=== PATIENT | female | born 1955 | race Caucasian/White ===

== ENCOUNTER 2020-09-29 11:30 | Emergency (ER) | payer MEDICARE, OTHER ==
[~2020-09-29] VITALS: Ht 170.2 cm; Wt 72.6 kg
[~2020-09-29 11:30] MED LIST: AMLODIPINE BESY10 MG PO; ASPIR 8181 MG PO; CARDURA 2MG TAB2 MG PO; CARVEDILOL3.125 MG PO; CATAPRES 0.1MG0.1 MG PO; CHOLESTEROL RE1 EACH PO; CLARITIN10 MG PO; CLONIDINE1 EAC1 TD; CLOPIDOGREL75 MG PO; COREG 3.125M3.125 MG PO; COZAAR 50MG TAB50 MG PO; COZAAR50 MG PO; DIABETA 5 MG TAB5 MG PO; FISH OIL 1,4001 EACH PO; FLUNISOLIDE25 ML; GLUCOTROL 10 MG10 MG PO; HYDRALAZINE HC100 MG PO; HYDRALAZINE HCL50 MG PO; K-DUR TAB 20 M20 MEQ PO; LASIX40 MG PO; LASIX80 MG PO; LEVEMIR FL100 UNIT/1 SQ; LISINOPRIL40 MG PO; METOPROLOL TART25 MG PO; MINIPRESS2 MG PO; NEURONTIN 100100 MG PO; NORVASC10 MG PO; PAXIL20 MG PO; PLAVIX 75 MG TA75 MG PO; PROCARDIA XL 6060 MG PO; SINGULAIR10 MG PO; TYLENOL PM EX-1 EACH PO; VITAMIN D31000 UNIT PO; [UNRECOGNIZED DRUG - CODE] SC; [UNRECOGNIZED DRUG - OTHER] SQ
[2020-09-29 12:50] LABS: RED BLOOD COUNT 4.28 M/UL (4.00-5.10); WHITE BLOOD COUNT 16.1 K/UL (4.5-11.0)
[2021-02-09] MEDS ORDERED: GLUCOTROL 10 MG10 MG PO (12:18)
[2021-02-09] MEDS ORDERED: LIDOCAINE1 EAC1 TP (18:48)
[2021-02-09] MEDS ORDERED: LEVEMIR FL100 UNIT/1 SQ (18:50)
== END 2020-09-29 19:06 | disposition home or self-care (01) ==
LOC: ER1 11:30 → CDU 15:04 → ER1 15:04
PROVIDERS: Internal Medicine
DX: A41.9 Sepsis, unspecified organism (principal); K65.2 Spontaneous bacterial peritonitis; E87.2 Acidosis; E87.6 Hypokalemia; I25.10 Atherosclerotic heart disease of native coronary artery without angina pectoris; E03.9 Hypothyroidism, unspecified; I12.0 Hypertensive chronic kidney disease with stage 5 chronic kidney disease or end stage renal disease; E78.5 Hyperlipidemia, unspecified; E11.22 Type 2 diabetes mellitus with diabetic chronic kidney disease; I48.91 Unspecified atrial fibrillation; N18.6 End stage renal disease; Z99.2 Dependence on renal dialysis; Z88.0 Allergy status to penicillin; Z88.6 Allergy status to analgesic agent; Z90.49 Acquired absence of other specified parts of digestive tract; Z79.01 Long term (current) use of anticoagulants; Z20.822 Contact with and (suspected) exposure to COVID-19
CPT/HCPCS: 36415; 80053; 83605; 83735; 84484; 85025; 85610; 85730; 87040; 93005; 96365; 96368; 99285; J0696; J1644; J3480; U0002

== ENCOUNTER 2020-10-11 12:50 | Emergency (ER) | payer MEDICARE, OTHER ==
[2020-10-11 13:29] LABS: HEMOGLOBIN 12.6 gm/dl (12.3-15.3); RED BLOOD COUNT 4.43 M/UL (4.00-5.10); WHITE BLOOD COUNT 13.3 K/UL (4.5-11.0)
[2020-10-11 15:28] LABS: BODY FLUID SOURCE PERITONEAL; RBC (AUTOMATED) 0 (0-100000); WBC (AUTOMATED) 3 (0-500)
[2020-10-11 15:35] LABS: AMYLASE, BODY FLUID < 2 U/L; LDH, BODY FLUID 8 U/L
[2020-10-11] MEDS ORDERED: ADULT GLYCERIN1 EACH PR (20:58)
[2020-10-11] MEDS ORDERED: MIRALAX 119 GR119 GM GT (20:58)
[2021-02-09] MEDS ORDERED: GLUCOTROL 10 MG10 MG PO (12:18)
[2021-02-09] MEDS ORDERED: LIDOCAINE1 EAC1 TP (18:48)
[2021-02-09] MEDS ORDERED: LEVEMIR FL100 UNIT/1 SQ (18:50)
== END 2020-10-11 21:36 | disposition home or self-care (01) ==
LOC: ER1 12:50
PROVIDERS: Physician Assistant Medical
DX: K59.00 Constipation, unspecified (principal); I12.9 Hypertensive chronic kidney disease with stage 1 through stage 4 chronic kidney disease, or unspecified chronic kidney disease; N18.9 Chronic kidney disease, unspecified; E11.22 Type 2 diabetes mellitus with diabetic chronic kidney disease; Z90.49 Acquired absence of other specified parts of digestive tract; Z79.899 Other long term (current) drug therapy; Z88.8 Allergy status to other drugs, medicaments and biological substances
CPT/HCPCS: 51701; 80053; 81001; 82150; 83605; 83615; 83690; 85025; 87070; 87205; 89051; 96374; 96375; 99284; J2270; J2405; J7030

== ENCOUNTER 2020-10-19 14:01 | Emergency (ER) | payer MEDICARE, OTHER ==
[~2020-10-19 14:01] MED LIST changes: +ADULT GLYCERIN1 EACH PR; +MIRALAX 119 GR119 GM GT
[2020-10-19 14:56] LABS: HEMOGLOBIN 12.7 gm/dl (12.3-15.3); RED BLOOD COUNT 4.42 M/UL (4.00-5.10); WHITE BLOOD COUNT 11.6 K/UL (4.5-11.0)
[2020-10-19 16:49] LABS: BUN/CREATININE RATIO 5 (0-10)
[2021-02-09] MEDS ORDERED: GLUCOTROL 10 MG10 MG PO (12:18)
[2021-02-09] MEDS ORDERED: LIDOCAINE1 EAC1 TP (18:48)
[2021-02-09] MEDS ORDERED: LEVEMIR FL100 UNIT/1 SQ (18:50)
== END 2020-10-19 20:45 | disposition home or self-care (01) ==
LOC: ER1 14:01
PROVIDERS: Emergency Medicine
DX: E11.649 Type 2 diabetes mellitus with hypoglycemia without coma (principal); I99.8 Other disorder of circulatory system
CPT/HCPCS: 51701; 70450; 71045; 80053; 81001; 82550; 82553; 82962; 83605; 83874; 83880; 84484; 85025; 93005; 99285

== ENCOUNTER 2020-12-11 13:07 | Inpatient (IN) | payer MEDICARE, OTHER ==
[~2020-12-11] VITALS: Ht 170.2 cm; Wt 69.5 kg
[2020-12-11 14:41] LABS: HEMOGLOBIN 9.9 gm/dl (12.3-15.3); RED BLOOD COUNT 3.42 M/UL (4.00-5.10); WHITE BLOOD COUNT 8.1 K/UL (4.5-11.0)
[2020-12-11 19:08] LABS: BODY FLUID SOURCE PERITONEAL; RBC (AUTOMATED) 100 (0-100000); WBC (AUTOMATED) 28 (0-500)
[2020-12-11 19:09] LABS: MONONUCLEAR CELLS 89.3 (75-100); POLYMORPHONUCLEAR % 10.7 (0-25)
[2020-12-11 19:11] LABS: TOTAL PROTEIN, BODY FLUID 0.2 gm/dL
[2020-12-12 04:04] LABS: HEMOGLOBIN 9.6 gm/dl (12.3-15.3); RED BLOOD COUNT 3.3 M/UL (4.00-5.10); WHITE BLOOD COUNT 6.4 K/UL (4.5-11.0)
[2020-12-12] MEDS ORDERED: ISORDIL TAB 3030 MG PO (11:10)
[2020-12-12] MEDS ORDERED: ZAROXOLYN/DIULO5 MG PO (11:11)
[2020-12-12] MEDS ORDERED: METHOCARBAMOL500 MG PO (11:11)
[2020-12-12] MEDS ORDERED: METOPROLOL SUCC25 MG PO (11:12)
[2020-12-12] MEDS ORDERED: SPIRONOLACTONE25 MG PO (11:26)
[2020-12-12] MEDS ORDERED: ZANAFLEX 4 MG TA4 MG PO (11:27)
[2020-12-12] MEDS ORDERED: XIFAXAN 550 MG550 MG PO (11:28)
[2020-12-12] MEDS ORDERED: ATORVASTATIN CA80 MG PO (11:29)
[2020-12-12] MEDS ORDERED: CETIRIZINE HCL10 MG PO (11:29)
[2020-12-12] MEDS ORDERED: CREON DR 36,001 EACH PO (11:30)
[2020-12-12] MEDS ORDERED: ELIQUIS2.5 MG PO (11:31)
[2020-12-12] MEDS ORDERED: LIDOCAINE PAIN1 EACH TP (13:11)
[2020-12-13 04:52] LABS: HEMOGLOBIN 9.1 gm/dl (12.3-15.3); RED BLOOD COUNT 3.2 M/UL (4.00-5.10); WHITE BLOOD COUNT 6.1 K/UL (4.5-11.0)
[2020-12-14 06:56] LABS: RED BLOOD COUNT 3.44 M/UL (4.00-5.10)
[2020-12-14 07:23] LABS: WHITE BLOOD COUNT 7.9 K/UL (4.5-11.0)
[2020-12-15 09:14] LABS: HBSAG SCREEN Negative (Negative); HEP A AB, IGM Negative (Negative); HEP B CORE AB, IGM Negative (Negative); HEP C VIRUS AB <0.1 (0.0-0.9)
[2020-12-15 11:49] LABS: WHITE BLOOD COUNT 7.9 K/UL (4.5-11.0)
[2020-12-15 12:54] LABS: HEMOGLOBIN 7.7 gm/dl (12.3-15.3); RED BLOOD COUNT 2.62 M/UL (4.00-5.10)
[2020-12-16 03:33] LABS: RED BLOOD COUNT 2.41 M/UL (4.00-5.10); WHITE BLOOD COUNT 7.2 K/UL (4.5-11.0)
--- NOTE | 2020-12-16 11:38 | NUR ---
DR SILVA ON THE PHONE, SEEN PATIENT AND WILL ORDER NEW MEDICINE
[2020-12-16 17:29] LABS: HEMOGLOBIN 9.1 gm/dl (12.3-15.3)
[2020-12-17 03:18] LABS: HEMOGLOBIN 8.2 gm/dl (12.3-15.3); WHITE BLOOD COUNT 7.5 K/UL (4.5-11.0)
[2020-12-17 03:20] LABS: RED BLOOD COUNT 2.77 M/UL (4.00-5.10)
[2020-12-18 03:43] LABS: HEMOGLOBIN 8.2 gm/dl (12.3-15.3); RED BLOOD COUNT 2.76 M/UL (4.00-5.10); WHITE BLOOD COUNT 7.6 K/UL (4.5-11.0)
--- NOTE | 2020-12-21 02:24 | NUR ---
12/20/201999 PT HAS LEFT UPPER ARM FISTUAL NO BRUIT OR TRILL NOTED. PT STATES IT DOES NOT WORK ANYMORE.
[2020-12-21 04:19] LABS: RED BLOOD COUNT 2.68 M/UL (4.00-5.10); WHITE BLOOD COUNT 8.2 K/UL (4.5-11.0)
[2020-12-21] MEDS ORDERED: COZAAR 50MG TAB50 MG PO (11:42)
[2020-12-21] MEDS ORDERED: CLOPIDOGREL75 MG PO (11:42)
[2020-12-21] MEDS ORDERED: PHENERGAN 12.12.5 M1 PO (11:42)
--- NOTE | 2020-12-21 12:21 | NUR ---
patient going to have her dialysis today per dr. burt. notified dr. leung and case hardener rosalba
[2020-12-22 04:23] LABS: RED BLOOD COUNT 2.68 M/UL (4.00-5.10); WHITE BLOOD COUNT 8.5 K/UL (4.5-11.0)
--- NOTE | 2020-12-22 14:09 | NUR ---
PATIENT ARRIVED FROM DIALYSIS TODAY
[2021-02-09] MEDS ORDERED: GLUCOTROL 10 MG10 MG PO (12:18)
[2021-02-09] MEDS ORDERED: LIDOCAINE1 EAC1 TP (18:48)
[2021-02-09] MEDS ORDERED: LEVEMIR FL100 UNIT/1 SQ (18:50)
== END 2020-12-22 14:21 | DRG 73 ==
LOC: ER1 13:07 → M/S 16:56 → CDU 16:56 → M/S 20:14
PROVIDERS: Hospitalist; Internal Medicine Infectious Disease; Internal Medicine Nephrology; Physician Assistant; ADMIT Internal Medicine
PROC: 3E1M39Z Irrigation of Peritoneal Cavity using Dialysate, Percutaneous Approach (ICD-10-PCS; 2020-12-11)
PROC: 05HM33Z Insertion of Infusion Device into Right Internal Jugular Vein, Percutaneous Approach (ICD-10-PCS; 2020-12-14)
PROC: B5131ZA Fluoroscopy of Right Jugular Veins using Low Osmolar Contrast, Guidance (ICD-10-PCS; 2020-12-14)
PROC: 30233N1 Transfusion of Nonautologous Red Blood Cells into Peripheral Vein, Percutaneous Approach (ICD-10-PCS; principal; 2020-12-16)
PROC: 5A1D70Z Performance of Urinary Filtration, Intermittent, Less than 6 Hours Per Day (ICD-10-PCS; 2020-12-17)
PROC: 0JPT0XZ Removal of Tunneled Vascular Access Device from Trunk Subcutaneous Tissue and Fascia, Open Approach (ICD-10-PCS; 2020-12-18)
PROC: 0JH63XZ Insertion of Tunneled Vascular Access Device into Chest Subcutaneous Tissue and Fascia, Percutaneous Approach (ICD-10-PCS; 2020-12-18)
PROC: 02HV33Z Insertion of Infusion Device into Superior Vena Cava, Percutaneous Approach (ICD-10-PCS; 2020-12-18)
PROC: B548ZZA Ultrasonography of Superior Vena Cava, Guidance (ICD-10-PCS; 2020-12-18)
DX: E11.43 Type 2 diabetes mellitus with diabetic autonomic (poly)neuropathy (principal); N18.6 End stage renal disease; E87.1 Hypo-osmolality and hyponatremia; T82.49XA Other complication of vascular dialysis catheter, initial encounter; I13.2 Hypertensive heart and chronic kidney disease with heart failure and with stage 5 chronic kidney disease, or end stage renal disease; I48.20 Chronic atrial fibrillation, unspecified; K31.84 Gastroparesis; Z20.822 Contact with and (suspected) exposure to COVID-19; E11.22 Type 2 diabetes mellitus with diabetic chronic kidney disease; E87.6 Hypokalemia; E83.42 Hypomagnesemia; I48.0 Paroxysmal atrial fibrillation; K44.9 Diaphragmatic hernia without obstruction or gangrene; K21.00 Gastro-esophageal reflux disease with esophagitis, without bleeding; K29.60 Other gastritis without bleeding; E11.319 Type 2 diabetes mellitus with unspecified diabetic retinopathy without macular edema; I50.9 Heart failure, unspecified; I49.5 Sick sinus syndrome; K31.7 Polyp of stomach and duodenum; Y83.8 Other surgical procedures as the cause of abnormal reaction of the patient, or of later complication, without mention of misadventure at the time of the procedure; D63.1 Anemia in chronic kidney disease; E03.9 Hypothyroidism, unspecified; R53.81 Other malaise; H54.8 Legal blindness, as defined in USA; E11.21 Type 2 diabetes mellitus with diabetic nephropathy; R63.4 Abnormal weight loss; Z79.4 Long term (current) use of insulin; Z79.01 Long term (current) use of anticoagulants; Z86.73 Personal history of transient ischemic attack (TIA), and cerebral infarction without residual deficits; Z99.2 Dependence on renal dialysis; Z90.49 Acquired absence of other specified parts of digestive tract; Z88.6 Allergy status to analgesic agent; Z88.0 Allergy status to penicillin; Z98.51 Tubal ligation status
CPT/HCPCS: 36415; 36430; 71045; 77001; 78264; 80048; 80053; 80074; 82150; 82550; 82553; 82728; 82945; 82962; 83540; 83550; 83605; 83615; 83735; 83874; 83880; 83986; 84132; 84157; 84484; 85014; 85018; 85025; 86850; 86900; 86901; 86920; 87040; 87070; 87205; 89051; 90935; 90937; 90945; 90947; 93005; 97110; 97110-GP-CQ; 97161; 97167; 97530; 97530-GP-CQ; 99285; A9541; C1750; C1752; C1769; C1788; J0690; J1642; J2001; J2250; J2270; J2370; J2550; J2704; J3475; J7030; J7040; J7050; J7120; P9016; U0002

== ENCOUNTER 2021-01-13 22:40 | Inpatient (IN) | payer MEDICARE, OTHER ==
[~2021-01-13] VITALS: Ht 170.2 cm; Wt 71.8 kg
[~2021-01-13 22:40] MED LIST changes: +ATORVASTATIN CA80 MG PO; +CETIRIZINE HCL10 MG PO; +CREON DR 36,001 EACH PO; +ELIQUIS2.5 MG PO; +ISORDIL TAB 3030 MG PO; +LIDOCAINE PAIN1 EACH TP; +METHOCARBAMOL500 MG PO; +METOPROLOL SUCC25 MG PO; +PHENERGAN 12.12.5 M1 PO; +SPIRONOLACTONE25 MG PO; +XIFAXAN 550 MG550 MG PO; +ZANAFLEX 4 MG TA4 MG PO; +ZAROXOLYN/DIULO5 MG PO
[2021-01-13 23:40] LABS: HEMOGLOBIN 7.9 gm/dl (12.3-15.3); RED BLOOD COUNT 2.69 M/UL (4.00-5.10); WHITE BLOOD COUNT 9.2 K/UL (4.5-11.0)
[2021-01-14] MEDS ORDERED: COZAAR100 MG PO (12:08)
[2021-01-14] MEDS ORDERED: METHOCARBAMOL500 MG PO (12:26)
[2021-01-14] MEDS ORDERED: BENTYL 20MG TAB20 MG PO (12:28)
[2021-01-14] MEDS ORDERED: SILDENAFIL20 MG PO (12:54)
[2021-01-14] MEDS ORDERED: NORVASC10 MG PO (12:57)
[2021-01-14] MEDS ORDERED: HYDRALAZINE HC100 MG PO (12:58)
[2021-01-14] MEDS ORDERED: KLOR-CON M2020 MEQ PO (13:00)
[2021-01-14] MEDS ORDERED: ZYRTEC10 M3 PO (13:01)
[2021-01-14 15:20] LABS: HEMOGLOBIN 8.5 gm/dl (12.3-15.3)
[2021-01-15 06:52] LABS: HEMOGLOBIN 7.8 gm/dl (12.3-15.3); RED BLOOD COUNT 2.67 M/UL (4.00-5.10); WHITE BLOOD COUNT 7.7 K/UL (4.5-11.0)
[2021-01-15 09:17] LABS: HBSAG SCREEN Negative (Negative); HEP A AB, IGM Negative (Negative); HEP B CORE AB, IGM Negative (Negative); HEP C VIRUS AB <0.1 (0.0-0.9)
[2021-01-15 10:34] LABS: BODY FLUID SOURCE PERITONEAL; RBC (AUTOMATED) 0 10^6; WBC (AUTOMATED) 2 10^3
[2021-01-16 04:51] LABS: HEMOGLOBIN 8.2 gm/dl (12.3-15.3); RED BLOOD COUNT 2.76 M/UL (4.00-5.10)
[2021-01-16 04:53] LABS: WHITE BLOOD COUNT 10.3 K/UL (4.5-11.0)
[2021-01-17 03:35] LABS: HEMOGLOBIN 7.9 gm/dl (12.3-15.3); RED BLOOD COUNT 2.66 M/UL (4.00-5.10)
[2021-01-17 03:41] LABS: WHITE BLOOD COUNT 7.6 K/UL (4.5-11.0)
--- NOTE | 2021-01-17 10:33 | NUR ---
[address] randolph regarding consult
[2021-01-18 08:40] LABS: HEMOGLOBIN 8.8 gm/dl (12.3-15.3); WHITE BLOOD COUNT 8.4 K/UL (4.5-11.0)
[2021-01-18 08:52] LABS: RED BLOOD COUNT 2.97 M/UL (4.00-5.10)
[2021-01-18] MEDS ORDERED: CEFUROXIME250 MG PO (13:02)
[2021-01-18 15:10] LABS: ALKALINE PHOSPHATASE, S 118 IU/L (48-121); BONE FRACTION: 27 % (14-68); INTESTINAL FRAC.: 2 % (0-18); LIVER FRACTION: 70 % (18-85)
[2021-02-09] MEDS ORDERED: GLUCOTROL 10 MG10 MG PO (12:18)
[2021-02-09] MEDS ORDERED: LIDOCAINE1 EAC1 TP (18:48)
[2021-02-09] MEDS ORDERED: LEVEMIR FL100 UNIT/1 SQ (18:50)
== END 2021-01-18 18:10 | disposition home health service (06) | DRG 871 ==
LOC: ER1 22:40 → M/S 01-14 03:10 → CDU 01-14 03:10 → CCU 01-14 03:10 → M/S 01-16 11:10
PROVIDERS: Emergency Medicine; Internal Medicine Nephrology; Physician Assistant; ADMIT Internal Medicine
PROC: 5A1D70Z Performance of Urinary Filtration, Intermittent, Less than 6 Hours Per Day (ICD-10-PCS; principal; 2021-01-14)
PROC: 02HV33Z Insertion of Infusion Device into Superior Vena Cava, Percutaneous Approach (ICD-10-PCS; 2021-01-14)
DX: A41.89 Other specified sepsis (principal); R65.21 Severe sepsis with septic shock; N18.6 End stage renal disease; K65.9 Peritonitis, unspecified; E43 Unspecified severe protein-calorie malnutrition; I48.20 Chronic atrial fibrillation, unspecified; E87.1 Hypo-osmolality and hyponatremia; J90 Pleural effusion, not elsewhere classified; I13.0 Hypertensive heart and chronic kidney disease with heart failure and stage 1 through stage 4 chronic kidney disease, or unspecified chronic kidney disease; Z68.1 Body mass index [BMI] 19.9 or less, adult; N30.80 Other cystitis without hematuria; B96.1 Klebsiella pneumoniae [K. pneumoniae] as the cause of diseases classified elsewhere; E87.6 Hypokalemia; E83.42 Hypomagnesemia; E03.9 Hypothyroidism, unspecified; K74.60 Unspecified cirrhosis of liver; I95.9 Hypotension, unspecified; M54.9 Dorsalgia, unspecified; R53.1 Weakness; E11.40 Type 2 diabetes mellitus with diabetic neuropathy, unspecified; I49.5 Sick sinus syndrome; E78.5 Hyperlipidemia, unspecified; J45.909 Unspecified asthma, uncomplicated; I50.9 Heart failure, unspecified; H54.7 Unspecified visual loss; E11.319 Type 2 diabetes mellitus with unspecified diabetic retinopathy without macular edema; D53.9 Nutritional anemia, unspecified; K21.9 Gastro-esophageal reflux disease without esophagitis; L89.322 Pressure ulcer of left buttock, stage 2; E11.22 Type 2 diabetes mellitus with diabetic chronic kidney disease; Z98.42 Cataract extraction status, left eye; Z88.0 Allergy status to penicillin; Z88.8 Allergy status to other drugs, medicaments and biological substances; Z79.4 Long term (current) use of insulin; Z86.73 Personal history of transient ischemic attack (TIA), and cerebral infarction without residual deficits; Z82.49 Family history of ischemic heart disease and other diseases of the circulatory system; Z79.01 Long term (current) use of anticoagulants; Z98.41 Cataract extraction status, right eye; Z90.49 Acquired absence of other specified parts of digestive tract; Z84.89 Family history of other specified conditions
CPT/HCPCS: 36415; 51701; 71045; 72131; 80048; 80053; 80074; 80202; 81001; 82728; 82962; 83540; 83550; 83605; 83690; 83735; 84075; 84080; 84132; 85014; 85018; 85025; 85027; 85652; 86140; 87040; 87070; 87077; 87086; 87186; 87205; 89051; 90945; 90947; 96374; 96375; 97162; 97166; 99285; A6212; J0696; J2185; J2270; J2765; J3370; J3475; J7030; J7050; J7070; Q4081; U0002

== ENCOUNTER 2021-02-07 19:09 | Inpatient (IN) | payer MEDICARE, OTHER ==
[~2021-02-07] VITALS: Ht 170.2 cm; Wt 70.8 kg
[~2021-02-07 19:09] MED LIST changes: -ATORVASTATIN CA80 MG PO; +BENTYL 20MG TAB20 MG PO; +CEFUROXIME250 MG PO; +COZAAR100 MG PO; -CREON DR 36,001 EACH PO; +KLOR-CON M2020 MEQ PO; -METOPROLOL SUCC25 MG PO; +SILDENAFIL20 MG PO; -ZANAFLEX 4 MG TA4 MG PO; +ZYRTEC10 M3 PO
[2021-02-07 20:07] LABS: HEMOGLOBIN 11.2 gm/dl (12.3-15.3); RED BLOOD COUNT 3.73 M/UL (4.00-5.10); WHITE BLOOD COUNT 16.5 K/UL (4.5-11.0)
[2021-02-08 02:54] LABS: HEMOGLOBIN 10.4 gm/dl (12.3-15.3); RED BLOOD COUNT 3.49 M/UL (4.00-5.10)
[2021-02-08] MEDS ORDERED: ALDACTONE25 MG PO (07:29)
[2021-02-08] MEDS ORDERED: ZAROXOLYN/DIULO5 MG PO (07:31)
[2021-02-08] MEDS ORDERED: FUROSEMIDE80 MG PO (07:31)
[2021-02-08] MEDS ORDERED: SANTYL OINT 3030 GM TP (07:32)
[2021-02-08] MEDS ORDERED: ISORDIL TAB 3030 MG PO (07:35)
[2021-02-09 03:13] LABS: HEMOGLOBIN 8.9 gm/dl (12.3-15.3)
[2021-02-09 03:17] LABS: RED BLOOD COUNT 2.99 M/UL (4.00-5.10); WHITE BLOOD COUNT 11.9 K/UL (4.5-11.0)
[2021-02-09] MEDS ORDERED: LEVOTHYROXINE50 MCG PO (11:10)
[2021-02-09] MEDS ORDERED: PROTONIX40 MG PO (12:00)
[2021-02-09] MEDS ORDERED: HUMALOG100 UNIT/3 SC (18:51)
[2021-02-10 02:24] LABS: HEMOGLOBIN 8.8 gm/dl (12.3-15.3); RED BLOOD COUNT 3.09 M/UL (4.00-5.10); WHITE BLOOD COUNT 13.2 K/UL (4.5-11.0)
[2021-02-10 10:14] LABS: HBSAG SCREEN Negative (Negative); HEP A AB, IGM Negative (Negative); HEP B CORE AB, IGM Negative (Negative); HEP C VIRUS AB <0.1 (0.0-0.9)
[2021-02-11 02:40] LABS: HEMOGLOBIN 9.6 gm/dl (12.3-15.3); RED BLOOD COUNT 3.22 M/UL (4.00-5.10); WHITE BLOOD COUNT 14.2 K/UL (4.5-11.0)
[2021-02-12 05:20] LABS: HEMOGLOBIN 9.5 gm/dl (12.3-15.3); RED BLOOD COUNT 3.19 M/UL (4.00-5.10); WHITE BLOOD COUNT 11.4 K/UL (4.5-11.0)
[2021-02-12] MEDS ORDERED: DOXYCYCLINE HY100 MG PO (13:37)
[2021-02-12] MEDS ORDERED: CATAPRES 0.1MG0.1 MG PO (13:37)
[2021-02-12] MEDS ORDERED: OMNICEF 300 MG300 MG PO (13:37)
[2021-02-12] MEDS ORDERED: CLONIDINE1 EACH TOP (13:37)
[2021-02-12] MEDS ORDERED: METOCLOPRAMIDE10 MG PO (13:57)
== END 2021-02-12 16:09 | disposition home health service (06) | DRG 871 ==
LOC: ER1 19:09 → PROG CARE 22:42 → CDU 22:42 → PROG CARE 02-08 00:30
PROVIDERS: Family Medicine; Internal Medicine; Internal Medicine Nephrology; ADMIT Internal Medicine
PROC: 3E1M39Z Irrigation of Peritoneal Cavity using Dialysate, Percutaneous Approach (ICD-10-PCS; principal; 2021-02-08)
DX: A41.59 Other Gram-negative sepsis (principal); G93.41 Metabolic encephalopathy; N18.6 End stage renal disease; N39.0 Urinary tract infection, site not specified; Z20.822 Contact with and (suspected) exposure to COVID-19; I12.0 Hypertensive chronic kidney disease with stage 5 chronic kidney disease or end stage renal disease; L97.429 Non-pressure chronic ulcer of left heel and midfoot with unspecified severity; L97.419 Non-pressure chronic ulcer of right heel and midfoot with unspecified severity; E44.0 Moderate protein-calorie malnutrition; I31.3 Pericardial effusion (noninflammatory); E11.43 Type 2 diabetes mellitus with diabetic autonomic (poly)neuropathy; E11.622 Type 2 diabetes mellitus with other skin ulcer; I16.0 Hypertensive urgency; E03.9 Hypothyroidism, unspecified; E11.51 Type 2 diabetes mellitus with diabetic peripheral angiopathy without gangrene; F32.9 Major depressive disorder, single episode, unspecified; F41.9 Anxiety disorder, unspecified; K74.60 Unspecified cirrhosis of liver; E11.22 Type 2 diabetes mellitus with diabetic chronic kidney disease; D63.1 Anemia in chronic kidney disease; E87.6 Hypokalemia; I48.0 Paroxysmal atrial fibrillation; H91.90 Unspecified hearing loss, unspecified ear; E86.0 Dehydration; R53.81 Other malaise; K31.84 Gastroparesis; E78.5 Hyperlipidemia, unspecified; K86.89 Other specified diseases of pancreas; E11.40 Type 2 diabetes mellitus with diabetic neuropathy, unspecified; E11.319 Type 2 diabetes mellitus with unspecified diabetic retinopathy without macular edema; Z99.2 Dependence on renal dialysis; Z74.01 Bed confinement status; Z79.01 Long term (current) use of anticoagulants; Z79.4 Long term (current) use of insulin; Z82.49 Family history of ischemic heart disease and other diseases of the circulatory system; Z68.24 Body mass index [BMI] 24.0-24.9, adult; Z86.73 Personal history of transient ischemic attack (TIA), and cerebral infarction without residual deficits
CPT/HCPCS: 36415; 70450; 71045; 80048; 80053; 80074; 81001; 82140; 82550; 82553; 82728; 82962; 83036; 83540; 83550; 83605; 83735; 84100; 84132; 84439; 84443; 84484; 85025; 85027; 85610; 86140; 87040; 87077; 87086; 87186; 90945; 90947; 93005; 93925; 96374; 96375; 97110-GP-CQ; 97162; 97530-GP-CQ; 99285; J0696; J2270; J2405; J2765; J3475; Q4081; U0002

== ENCOUNTER 2021-03-18 15:30 | Emergency (ER) | payer MEDICARE, OTHER ==
[~2021-03-18 15:30] MED LIST changes: +ALDACTONE25 MG PO; +CLONIDINE1 EACH TOP; +DOXYCYCLINE HY100 MG PO; +FUROSEMIDE80 MG PO; +HUMALOG100 UNIT/3 SC; +LEVOTHYROXINE50 MCG PO; +METOCLOPRAMIDE10 MG PO; +OMNICEF 300 MG300 MG PO; +PROTONIX40 MG PO; +SANTYL OINT 3030 GM TP
== END 2021-03-18 19:19 | disposition home or self-care (01) ==
LOC: ER1 15:30
PROVIDERS: Preventive Medicine Occupational Medicine
DX: E86.0 Dehydration (principal); M79.89 Other specified soft tissue disorders; I10 Essential (primary) hypertension; E11.9 Type 2 diabetes mellitus without complications; F17.290 Nicotine dependence, other tobacco product, uncomplicated
CPT/HCPCS: 80053; 83690; 85025; 85652; 86140; 96374; 99285; J0696

== ENCOUNTER 2021-03-23 06:39 | Inpatient (IN) | payer MEDICARE, OTHER ==
[~2021-03-23] VITALS: Ht 170.2 cm; Wt 64.0 kg
[2021-03-23 07:30] LABS: HEMOGLOBIN 10.4 gm/dl (12.3-15.3); RED BLOOD COUNT 3.72 M/UL (4.00-5.10); WHITE BLOOD COUNT 18.9 K/UL (4.5-11.0)
[2021-03-23] MEDS ORDERED: METOPROLOL SUCC25 MG PO (11:12)
[2021-03-23] MEDS ORDERED: ZANAFLEX 4 MG TA4 MG PO (11:27)
[2021-03-23] MEDS ORDERED: ATORVASTATIN CA80 MG PO (11:29)
[2021-03-23] MEDS ORDERED: CREON DR 36,001 EACH PO (11:30)
[2021-03-23] MEDS ORDERED: TRAZODONE HCL50 MG PO (12:07)
[2021-03-23] MEDS ORDERED: FUROSEMIDE80 MG PO (12:08)
[2021-03-23] MEDS ORDERED: ISOSORBIDE DINI30 MG PO (12:12)
[2021-03-23] MEDS ORDERED: METHOCARBAMOL500 MG PO (12:13)
[2021-03-23] MEDS ORDERED: HYDRALAZINE HC100 MG PO (12:16)
[2021-03-23] MEDS ORDERED: GLUCOTROL 10 MG10 MG PO (12:18)
[2021-03-23] MEDS ORDERED: NOVOLOG FL100 UNIT/1 INJ (12:23)
[2021-03-23 12:51] LABS: BODY FLUID SOURCE PERITONEAL; MONONUCLEAR CELLS 59 %; POLYMORPHONUCLEAR 41 %; RBC (AUTOMATED) 100 10^6; WBC (AUTOMATED) 172 10^3
[2021-03-23] MEDS ORDERED: LIDOCAINE1 EAC1 TP (18:48)
[2021-03-23] MEDS ORDERED: LEVEMIR FL100 UNIT/1 SQ (18:50)
[2021-03-24 01:49] LABS: HEMOGLOBIN 9.8 gm/dl (12.3-15.3); WHITE BLOOD COUNT 19.9 K/UL (4.5-11.0)
[2021-03-24 01:58] LABS: RED BLOOD COUNT 3.31 M/UL (4.00-5.10)
[2021-03-25 03:07] LABS: HEMOGLOBIN 9.2 gm/dl (12.3-15.3); RED BLOOD COUNT 3.19 M/UL (4.00-5.10)
--- NOTE | 2021-03-25 16:52 | NUR ---
PATIENT BLOOD SUGAR AT 55. JUICE GIVEN, AND PATIENT TRAY ARRIVES, PATIENT BEING FED BY , BLOOD SUGAR AT 65. WILL CONTINUE TO MONITOR
[2021-03-26 05:32] LABS: HEMOGLOBIN 9.3 gm/dl (12.3-15.3); RED BLOOD COUNT 3.18 M/UL (4.00-5.10); WHITE BLOOD COUNT 14.3 K/UL (4.5-11.0)
[2021-03-27 03:06] LABS: HEMOGLOBIN 8.8 gm/dl (12.3-15.3); RED BLOOD COUNT 2.98 M/UL (4.00-5.10); WHITE BLOOD COUNT 13.1 K/UL (4.5-11.0)
[2021-03-27 08:49] LABS: BODY FLUID SOURCE PERITONEAL; RBC (AUTOMATED) 0 (0-100000); WBC (AUTOMATED) 7 (0-500)
[2021-03-28 16:59] LABS: RED BLOOD COUNT 3.38 M/UL (4.00-5.10); WHITE BLOOD COUNT 16.4 K/UL (4.5-11.0)
--- NOTE | 2021-03-28 23:37 | NUR ---
Contacted Dialysis Nurse Estephanie regarding alarm on dialysis machine. The machine states "power recovery failure". I turned machine off and back on as directed by DN, alarm still continues. Was advised by DN to turn off machine and she would address in morning. The backup second machine was being used by another pt. Machine is now turned off. Pt is not receiving dialysis at this time.
[2021-03-29 06:42] LABS: HEMOGLOBIN 8.7 gm/dl (12.3-15.3); WHITE BLOOD COUNT 14.8 K/UL (4.5-11.0)
[2021-03-29 06:53] LABS: RED BLOOD COUNT 2.94 M/UL (4.00-5.10)
[2021-03-29] MEDS ORDERED: MEGACE 400400 MG/10 PO (12:36)
[2021-03-29] MEDS ORDERED: METOPROLOL SUCC50 MG PO (12:36)
[2021-03-29] MEDS ORDERED: ZYVOX600 MG PO (12:36)
[2021-03-29] MEDS ORDERED: ASPIRIN EC81 MG PO (12:36)
[2021-03-29] MEDS ORDERED: SANTYL OINT 3030 GM TOP (12:48)
[2021-03-29] MEDS ORDERED: CLINDAMYCIN HC300 MG PO (12:56)
[2021-03-29] MEDS ORDERED: HYDROCODON-ACE1 EAC4 PO (12:57)
[2021-03-29] MEDS ORDERED: DEX4 GLUCOSE4 GM PO (13:04)
--- NOTE | 2021-03-29 18:17 | NUR ---
Gave report to Maria Ines George at [facility] at approx. 1500.
== END 2021-03-29 18:50 | disposition home health service (06) | DRG 280 ==
LOC: ER1 06:39 → CDU 10:41 → MED SURG 4 10:41 → PROG CARE 20:07 → MED SURG 4 03-27 15:04
PROVIDERS: Family Medicine; Physician Assistant; ADMIT Internal Medicine
PROC: 3E1M39Z Irrigation of Peritoneal Cavity using Dialysate, Percutaneous Approach (ICD-10-PCS; principal; 2021-03-24)
PROC: B24BZZ4 Ultrasonography of Heart with Aorta, Transesophageal (ICD-10-PCS; 2021-03-24)
DX: T82.7XXA Infection and inflammatory reaction due to other cardiac and vascular devices, implants and grafts, initial encounter (principal); A41.9 Sepsis, unspecified organism; I21.4 Non-ST elevation (NSTEMI) myocardial infarction; K65.9 Peritonitis, unspecified; Z20.822 Contact with and (suspected) exposure to COVID-19; N18.6 End stage renal disease; I48.21 Permanent atrial fibrillation; I12.0 Hypertensive chronic kidney disease with stage 5 chronic kidney disease or end stage renal disease; E87.2 Acidosis; E11.52 Type 2 diabetes mellitus with diabetic peripheral angiopathy with gangrene; E78.5 Hyperlipidemia, unspecified; E11.22 Type 2 diabetes mellitus with diabetic chronic kidney disease; E11.319 Type 2 diabetes mellitus with unspecified diabetic retinopathy without macular edema; H54.8 Legal blindness, as defined in USA; J45.909 Unspecified asthma, uncomplicated; E11.43 Type 2 diabetes mellitus with diabetic autonomic (poly)neuropathy; K31.84 Gastroparesis; K74.60 Unspecified cirrhosis of liver; R53.81 Other malaise; E03.9 Hypothyroidism, unspecified; I08.1 Rheumatic disorders of both mitral and tricuspid valves; I27.20 Pulmonary hypertension, unspecified; L89.610 Pressure ulcer of right heel, unstageable; L89.892 Pressure ulcer of other site, stage 2; E83.42 Hypomagnesemia; Y84.0 Cardiac catheterization as the cause of abnormal reaction of the patient, or of later complication, without mention of misadventure at the time of the procedure; L89.150 Pressure ulcer of sacral region, unstageable; D63.1 Anemia in chronic kidney disease; L89.620 Pressure ulcer of left heel, unstageable; I49.5 Sick sinus syndrome; Z86.73 Personal history of transient ischemic attack (TIA), and cerebral infarction without residual deficits; Z79.4 Long term (current) use of insulin; Z74.01 Bed confinement status; Z90.49 Acquired absence of other specified parts of digestive tract; Z98.42 Cataract extraction status, left eye; Z98.41 Cataract extraction status, right eye; Z82.49 Family history of ischemic heart disease and other diseases of the circulatory system; Z83.3 Family history of diabetes mellitus; Z80.52 Family history of malignant neoplasm of bladder; Z88.0 Allergy status to penicillin; Z88.8 Allergy status to other drugs, medicaments and biological substances; Z68.27 Body mass index [BMI] 27.0-27.9, adult
CPT/HCPCS: ECHO; 36415; 71045; 71046; 80053; 80202; 82550; 82553; 82962; 83605; 83690; 83735; 83874; 84132; 84484; 85025; 85027; 87040; 87070; 87077; 87186; 87205; 89051; 90935; 90945; 90947; 93005; 93306; 96374; 96375; 96376; 97110-GP-CQ; 97162; 97167; 97530-GP-CQ; 99284; J0692; J1644; J2185; J2405; J3370; J3475; J7030; J7040; J7070; U0002

== ENCOUNTER 2021-04-01 10:50 | Inpatient (IN) | payer MEDICARE, OTHER ==
[~2021-04-01] VITALS: Ht 170.2 cm; Wt 70.3 kg
[~2021-04-01 10:50] MED LIST changes: +ASPIRIN EC81 MG PO; +ATORVASTATIN CA80 MG PO; +CLINDAMYCIN HC300 MG PO; +CREON DR 36,001 EACH PO; +DEX4 GLUCOSE4 GM PO; +HYDROCODON-ACE1 EAC4 PO; +ISOSORBIDE DINI30 MG PO; +LIDOCAINE1 EAC1 TP; +MEGACE 400400 MG/10 PO; +METOPROLOL SUCC25 MG PO; +METOPROLOL SUCC50 MG PO; +NOVOLOG FL100 UNIT/1 INJ; +SANTYL OINT 3030 GM TOP; +TRAZODONE HCL50 MG PO; +ZANAFLEX 4 MG TA4 MG PO; +ZYVOX600 MG PO
[2021-04-01 12:11] LABS: HEMOGLOBIN 10.2 gm/dl (12.3-15.3); RED BLOOD COUNT 3.42 M/UL (4.00-5.10); WHITE BLOOD COUNT 14.1 K/UL (4.5-11.0)
[2021-04-01] MEDS ORDERED: ZYRTEC10 MG PO (12:20)
[2021-04-01] MEDS ORDERED: DESYREL 50 MG T50 MG PO (15:09)
[2021-04-01] MEDS ORDERED: PAXIL20 MG PO (15:10)
[2021-04-02 00:50] LABS: WHITE BLOOD COUNT 12.9 K/UL (4.5-11.0)
[2021-04-02 02:01] LABS: HEMOGLOBIN 8.1 gm/dl (12.3-15.3); RED BLOOD COUNT 2.75 M/UL (4.00-5.10)
[2021-04-07 02:59] LABS: HEMOGLOBIN 7.8 gm/dl (12.3-15.3); RED BLOOD COUNT 2.66 M/UL (4.00-5.10); WHITE BLOOD COUNT 13.1 K/UL (4.5-11.0)
--- NOTE | 2021-04-07 17:36 | NUR ---
PTS PORT A CATH DRESSING CHANGED
[2021-04-09 06:28] LABS: HEMOGLOBIN 7.4 gm/dl (12.3-15.3); RED BLOOD COUNT 2.6 M/UL (4.00-5.10); WHITE BLOOD COUNT 12.6 K/UL (4.5-11.0)
[2021-04-09] MEDS ORDERED: LIPITOR20 MG PO (11:32)
[2021-04-09] MEDS ORDERED: HYDROCODON-ACE1 EAC4 PO (11:32)
[2021-04-09] MEDS ORDERED: ALDACTONE25 MG PO ×2 (11:32→11:52)
--- NOTE | 2021-04-09 18:07 | NUR ---
1600- ATTEMPTED TO CALL REPORT TO [facility], THEY SAID THEY WOULD HAVE A NURSE CALL BACK.
== END 2021-04-09 20:31 | disposition home health service (06) | DRG 637 ==
LOC: ER1 10:50 → NSRY 13:51 → CDU 13:51 → M/S 13:51 → CDU 14:22 → PROG CARE 04-02 15:06 → M/S 04-05 14:56
PROVIDERS: Internal Medicine Infectious Disease; ADMIT Internal Medicine
PROC: 02HV33Z Insertion of Infusion Device into Superior Vena Cava, Percutaneous Approach (ICD-10-PCS; principal; 2021-04-01)
PROC: B548ZZA Ultrasonography of Superior Vena Cava, Guidance (ICD-10-PCS; 2021-04-01)
PROC: 3E1M39Z Irrigation of Peritoneal Cavity using Dialysate, Percutaneous Approach (ICD-10-PCS; 2021-04-02)
DX: E11.649 Type 2 diabetes mellitus with hypoglycemia without coma (principal); K65.8 Other peritonitis; Z20.822 Contact with and (suspected) exposure to COVID-19; E43 Unspecified severe protein-calorie malnutrition; I21.4 Non-ST elevation (NSTEMI) myocardial infarction; N30.00 Acute cystitis without hematuria; T85.71XA Infection and inflammatory reaction due to peritoneal dialysis catheter, initial encounter; I13.0 Hypertensive heart and chronic kidney disease with heart failure and stage 1 through stage 4 chronic kidney disease, or unspecified chronic kidney disease; Z51.5 Encounter for palliative care; N18.6 End stage renal disease; B95.7 Other staphylococcus as the cause of diseases classified elsewhere; E87.6 Hypokalemia; H54.8 Legal blindness, as defined in USA; J45.909 Unspecified asthma, uncomplicated; E03.9 Hypothyroidism, unspecified; E11.22 Type 2 diabetes mellitus with diabetic chronic kidney disease; I49.5 Sick sinus syndrome; K74.60 Unspecified cirrhosis of liver; L89.616 Pressure-induced deep tissue damage of right heel; I50.9 Heart failure, unspecified; E78.5 Hyperlipidemia, unspecified; R53.81 Other malaise; E11.319 Type 2 diabetes mellitus with unspecified diabetic retinopathy without macular edema; Y84.6 Urinary catheterization as the cause of abnormal reaction of the patient, or of later complication, without mention of misadventure at the time of the procedure; E11.51 Type 2 diabetes mellitus with diabetic peripheral angiopathy without gangrene; Z87.440 Personal history of urinary (tract) infections; Z86.73 Personal history of transient ischemic attack (TIA), and cerebral infarction without residual deficits; Z79.4 Long term (current) use of insulin; Z90.49 Acquired absence of other specified parts of digestive tract; Z88.6 Allergy status to analgesic agent; Z88.0 Allergy status to penicillin; Z79.01 Long term (current) use of anticoagulants; Z79.82 Long term (current) use of aspirin; Z68.24 Body mass index [BMI] 24.0-24.9, adult
CPT/HCPCS: 36415; 36556; 51702; 71045; 80048; 80053; 80061; 80202; 81001; 82550; 82553; 82962; 83036; 83605; 83735; 84443; 84484; 85025; 85027; 86140; 87040; 87086; 90937; 90945; 90947; 93005; 93925; 94760; 97110-GP-CQ; 97162; 97167; 97530-GP-CQ; 99285; J0696; J1610; J2185; J2270; J3370; J7070; U0002

== ENCOUNTER → 2021-05-04 | Outpatient (CLI) | payer MEDICARE, OTHER ==
[~2021-05-04] MED LIST changes: +DESYREL 50 MG T50 MG PO; +LIPITOR20 MG PO; +ZYRTEC10 MG PO
== END ==
LOC: LBRF 15:07
PROVIDERS: Nurse Practitioner
DX: E11.43 Type 2 diabetes mellitus with diabetic autonomic (poly)neuropathy (principal); I13.2 Hypertensive heart and chronic kidney disease with heart failure and with stage 5 chronic kidney disease, or end stage renal disease; E11.22 Type 2 diabetes mellitus with diabetic chronic kidney disease; I50.9 Heart failure, unspecified; N18.6 End stage renal disease
CPT/HCPCS: 80053

== ENCOUNTER 2021-05-22 17:45 | Inpatient (IN) | payer MEDICARE, OTHER ==
[~2021-05-22] VITALS: Ht 144.8 cm; Wt 72.7 kg
[2021-05-22 18:12] LABS: HEMOGLOBIN 11.3 gm/dl (12.3-15.3); RED BLOOD COUNT 3.73 M/UL (4.00-5.10); WHITE BLOOD COUNT 17.3 K/UL (4.5-11.0)
[2021-05-22] MEDS ORDERED: ATORVASTATIN CA80 MG PO (23:17)
[2021-05-22] MEDS ORDERED: OXYCODON-ACETA1 EAC1 PO (23:17)
[2021-05-22] MEDS ORDERED: POTASSIUM CHLO20 ME2 PO (23:18)
[2021-05-22] MEDS ORDERED: ALDACTONE 25MG25 MG PO (23:20)
[2021-05-22] MEDS ORDERED: FUROSEMIDE80 MG PO (23:23)
[2021-05-23 15:14] LABS: WHITE BLOOD COUNT 20.6 K/UL (4.5-11.0)
[2021-05-23 15:16] LABS: HEMOGLOBIN 9.1 gm/dl (12.3-15.3); RED BLOOD COUNT 3.06 M/UL (4.00-5.10)
[2021-05-23] MEDS ORDERED: ZAROXOLYN/DIULO5 MG PO (16:50)
[2021-05-23 18:15] LABS: KPC-CARBAPENEM-RESISTANCE GENE Not Detected (Negative)
[2021-05-23 18:16] LABS: ACINETOBACTER BAUMANNII Not Detected (Negative); CANDIDA ALBICANS Not Detected (Negative); CANDIDA KRUSEI Not Detected (Negative); CANDIDA TROPICALIS Not Detected (Negative); ENTEROCOCCUS Not Detected (Negative); ESCHERICHIA COLI Not Detected (Negative); HAEMOPHILUS INFLUENZAE Not Detected (Negative); KLEBSIELLA OXYTOCA Not Detected (Negative); KLEBSIELLA PNEUMONIAE Not Detected (Negative); PROTEUS Not Detected (Negative); PSEUDOMONAS AERUGINOSA Not Detected (Negative); SERRATIA MARCESANS Not Detected (Negative); STAPHYLOCOCCUS AUREUS Not Detected (Negative); STREP AGALACTIAE (GROUP B) Not Detected (Negative); STREP PYOGENES (GROUP A) Not Detected (Negative); STREPTOCOCCUS Not Detected (Negative); vanA/B (VANCOMYCIN RESIST GENE Not Detected (Negative)
[2021-05-23 19:51] LABS: STAPHYLOCOCCUS DETECTED (Negative); mecA (METHICILLIN RESIST GENE DETECTED (Negative)
[2021-05-24 03:48] LABS: HEMOGLOBIN 7.7 gm/dl (12.3-15.3)
[2021-05-24 03:49] LABS: RED BLOOD COUNT 2.55 M/UL (4.00-5.10); WHITE BLOOD COUNT 15.4 K/UL (4.5-11.0)
[2021-05-24] MEDS ORDERED: MEGESTROL400 MG/11 PO (13:41)
[2021-05-24] MEDS ORDERED: METOPROLOL SUCC25 MG PO (13:43)
[2021-05-24] MEDS ORDERED: LIDOCAINE1 EAC1 TP (13:50)
[2021-05-24] MEDS ORDERED: HUMALOG100 UNIT/3 SQ (13:53)
[2021-05-24] MEDS ORDERED: METHOCARBAMOL500 MG PO (13:54)
[2021-05-24] MEDS ORDERED: BETADINE1 EACH TP (13:54)
[2021-05-24 14:22] LABS: HEMOGLOBIN 7.2 gm/dl (12.3-15.3)
[2021-05-25 03:00] LABS: HEMOGLOBIN 8.5 gm/dl (12.3-15.3); RED BLOOD COUNT 2.81 M/UL (4.00-5.10); WHITE BLOOD COUNT 14.6 K/UL (4.5-11.0)
[2021-05-26 03:01] LABS: WHITE BLOOD COUNT 12.3 K/UL (4.5-11.0)
[2021-05-26 03:04] LABS: HEMOGLOBIN 10.7 gm/dl (12.3-15.3); RED BLOOD COUNT 3.57 M/UL (4.00-5.10)
[2021-05-27 02:16] LABS: HEMOGLOBIN 9.9 gm/dl (12.3-15.3); RED BLOOD COUNT 3.36 M/UL (4.00-5.10); WHITE BLOOD COUNT 12.4 K/UL (4.5-11.0)
[2021-05-28 11:21] LABS: HEMOGLOBIN 9.4 gm/dl (12.3-15.3); RED BLOOD COUNT 3.2 M/UL (4.00-5.10)
[2021-05-28 11:28] LABS: WHITE BLOOD COUNT 15.9 K/UL (4.5-11.0)
[2021-05-29 08:59] LABS: HEMOGLOBIN 8.7 gm/dl (12.3-15.3); RED BLOOD COUNT 2.89 M/UL (4.00-5.10); WHITE BLOOD COUNT 14.6 K/UL (4.5-11.0)
[2021-05-30 08:09] LABS: HEMOGLOBIN 9.2 gm/dl (12.3-15.3); RED BLOOD COUNT 3.17 M/UL (4.00-5.10)
[2021-05-30 08:27] LABS: WHITE BLOOD COUNT 10.8 K/UL (4.5-11.0)
--- NOTE | 2021-05-31 05:11 | NUR ---
MULTIPLE WOUNDS TO ARMS AND LEGS CLEANSED WITH HIBICLENS AND MEPLEX PLACED TO PREVENT INFECTION. PT TOLERATED FAIRLY WELL.
[2021-05-31 08:06] LABS: HEMOGLOBIN 9.2 gm/dl (12.3-15.3); RED BLOOD COUNT 3.09 M/UL (4.00-5.10)
[2021-06-01 11:39] LABS: HEMOGLOBIN 9.3 gm/dl (12.3-15.3); RED BLOOD COUNT 3.07 M/UL (4.00-5.10); WHITE BLOOD COUNT 11.5 K/UL (4.5-11.0)
[2021-06-03] MEDS ORDERED: DOCUSATE SODIU100 MG PO (10:00)
[2021-06-03] MEDS ORDERED: SODIUM BICARBO650 M1 PO (10:00)
[2021-06-03] MEDS ORDERED: POLYETHYLENE GL17 GM PO (10:00)
[2021-06-03] MEDS ORDERED: OXYCODON-ACETA1 EAC1 PO (10:18)
== END 2021-06-03 17:31 | disposition home or self-care (01) | DRG 871 ==
LOC: ER1 17:45 → CDU 22:17 → PROG CARE 22:17 → CDU 05-23 12:19 → PROG CARE 05-23 12:58
PROVIDERS: Emergency Medicine; Internal Medicine; Internal Medicine Nephrology; ADMIT Internal Medicine
PROC: 3E1M39Z Irrigation of Peritoneal Cavity using Dialysate, Percutaneous Approach (ICD-10-PCS; principal; 2021-05-22)
DX: A41.1 Sepsis due to other specified staphylococcus (principal); N18.6 End stage renal disease; E43 Unspecified severe protein-calorie malnutrition; Z20.822 Contact with and (suspected) exposure to COVID-19; I13.11 Hypertensive heart and chronic kidney disease without heart failure, with stage 5 chronic kidney disease, or end stage renal disease; E27.40 Unspecified adrenocortical insufficiency; R64 Cachexia; E87.2 Acidosis; E87.1 Hypo-osmolality and hyponatremia; I48.20 Chronic atrial fibrillation, unspecified; E11.22 Type 2 diabetes mellitus with diabetic chronic kidney disease; E11.21 Type 2 diabetes mellitus with diabetic nephropathy; K74.60 Unspecified cirrhosis of liver; E86.0 Dehydration; E88.09 Other disorders of plasma-protein metabolism, not elsewhere classified; E87.6 Hypokalemia; L89.610 Pressure ulcer of right heel, unstageable; L89.612 Pressure ulcer of right heel, stage 2; E83.51 Hypocalcemia; E11.9 Type 2 diabetes mellitus without complications; E11.40 Type 2 diabetes mellitus with diabetic neuropathy, unspecified; E11.43 Type 2 diabetes mellitus with diabetic autonomic (poly)neuropathy; D63.1 Anemia in chronic kidney disease; K31.84 Gastroparesis; R65.20 Severe sepsis without septic shock; H54.8 Legal blindness, as defined in USA; E11.319 Type 2 diabetes mellitus with unspecified diabetic retinopathy without macular edema; L89.890 Pressure ulcer of other site, unstageable; K59.00 Constipation, unspecified; E86.9 Volume depletion, unspecified; E03.9 Hypothyroidism, unspecified; E11.51 Type 2 diabetes mellitus with diabetic peripheral angiopathy without gangrene; F32.A Depression, unspecified; F41.9 Anxiety disorder, unspecified; Z99.2 Dependence on renal dialysis; Z86.73 Personal history of transient ischemic attack (TIA), and cerebral infarction without residual deficits; Z79.4 Long term (current) use of insulin; Z87.440 Personal history of urinary (tract) infections; Z82.49 Family history of ischemic heart disease and other diseases of the circulatory system; Z79.01 Long term (current) use of anticoagulants; Z79.82 Long term (current) use of aspirin; Z79.899 Other long term (current) drug therapy; Z74.01 Bed confinement status; Z83.3 Family history of diabetes mellitus; Z88.0 Allergy status to penicillin; Z88.8 Allergy status to other drugs, medicaments and biological substances; Z68.35 Body mass index [BMI] 35.0-35.9, adult
CPT/HCPCS: 36415; 71045; 80048; 80053; 80202; 81001; 82140; 82550; 82553; 82962; 83605; 83690; 83735; 83874; 83880; 84100; 84132; 84484; 85014; 85018; 85025; 85027; 85610; 85730; 86140; 87040; 87070; 87077; 87086; 87150; 87186; 90945; 90947; 93005; 93971; 96365; 96375; 97161; 97167; 99285; A6212; C9113; J2185; J2270; J2405; J2765; J3370; J7030; J7050; J7070; U0002

== ENCOUNTER 2021-06-08 16:08 | Inpatient (IN) | payer MEDICARE, OTHER ==
[~2021-06-08] VITALS: Ht 170.2 cm; Wt 65.4 kg
[~2021-06-08 16:08] MED LIST changes: +ALDACTONE 25MG25 MG PO; +BETADINE1 EACH TP; +DOCUSATE SODIU100 MG PO; +HUMALOG100 UNIT/3 SQ; +MEGESTROL400 MG/11 PO; +OXYCODON-ACETA1 EAC1 PO; +POLYETHYLENE GL17 GM PO; +POTASSIUM CHLO20 ME2 PO; +SODIUM BICARBO650 M1 PO
[2021-06-08 17:34] LABS: HEMOGLOBIN 9.1 gm/dl (12.3-15.3); RED BLOOD COUNT 3.03 M/UL (4.00-5.10); WHITE BLOOD COUNT 20.2 K/UL (4.5-11.0)
[2021-06-08 19:47] LABS: BUN/CREATININE RATIO 8 (0-10)
[2021-06-09 05:55] LABS: WHITE BLOOD COUNT 22.1 K/UL (4.5-11.0)
[2021-06-09 05:58] LABS: RED BLOOD COUNT 2.69 M/UL (4.00-5.10)
--- NOTE | 2021-06-09 18:05 | NUR ---
PT, DAUGHTER, AND ARE REQUESTIG PT NOT BE STRAIGHT CATH'D TO OBTAIN URINE SPECIMEN WELL NOT RECIEVING IVF THE PT IS VERY EDEMOUS. EXPLAINED [id number] OF OBTAINING URINE FOR LABS AND PT RECIEVING IVF WITH VOICED UNDERSTANDING AND FAMILY AND PT STATE THEY DO NOT WANT STRAIGHT CATH OR IVF AT THIS TIME. DR. AKBAR NOTIFIED WITH NO NEW ORDERS NOTED.
--- NOTE | 2021-06-09 20:30 | NUR ---
Tech and I turned patient at this time. Patient condition change noted. Patient not responding to us anymore, BP low, 02 saturation low. Family at bedside. Updated/Informed cargo supervisor that patient's condition had declined, patient now on comfort measures and family informed to call other family and update that patient not doing well. Extra chairs provided/tissues.
--- NOTE | 2021-06-09 21:44 | NUR ---
PATIENT DECLINED IN ORIENTATION STATUS AND NO RESPONDING TO VERBAL OR STERNAL RUB. DAUGHTER INFORMED OF DECLINE IN PATIENTS STATUS AND INFORMED TO CALL FAMILY TO COME UP AND SEE PATIENT. TALKED WITH DAUGHTER AND ABOUT MAKING PATEINT COMFORT CARE AND THEY BOTH WAS IN AGREEMENT TO MAKE PATEINT COMFORT CARE. CALLED DR. SCHULER AT 2120 AND IMFORMED HIM OF FAMILY'S REQUEST. DR. SCHULER SPOKE TO PATIENT'S ON THE PHONE AND ONCE HEARD THE REQUEST GAVE THE VERBAL ORDER TO MAKE PATIENT COMFORT CARE. A COMFORT CARE ORDER SHEET WAS TUBED TO HIM AND HE SIGNED THE FORM TO INITIATE ORDERS.
--- NOTE | 2021-06-10 01:17 | NUR ---
0117 Patient on June 10, 2021. Verified time of by 2 RN's at bedside. No signs of respiratory effort, No response to verbal stimuli, No response to painful stimuli, No pupillary response to light, No central pulse noted, No heart sounds after 3 minutes of auscultation, No respiratory sounds after 3 minutes of auscultation. 0118 MD notified time of 0120 air traffic control supervisor notified time of 0130 DIANN contacted.. awaiting return phone call
== END 2021-06-10 04:28 | disposition expired | DRG 871 ==
LOC: ER1 16:08 → CDU 23:52 → PROG CARE 23:52
PROVIDERS: Student in an Organized Health Care Education/Training Program; ADMIT Internal Medicine
DX: A41.9 Sepsis, unspecified organism (principal); N18.6 End stage renal disease; R53.2 Functional quadriplegia; J18.9 Pneumonia, unspecified organism; E43 Unspecified severe protein-calorie malnutrition; R65.21 Severe sepsis with septic shock; E87.1 Hypo-osmolality and hyponatremia; I48.20 Chronic atrial fibrillation, unspecified; M62.82 Rhabdomyolysis; E87.2 Acidosis; R64 Cachexia; I13.2 Hypertensive heart and chronic kidney disease with heart failure and with stage 5 chronic kidney disease, or end stage renal disease; Z66 Do not resuscitate; Z20.822 Contact with and (suspected) exposure to COVID-19; I50.9 Heart failure, unspecified; E11.43 Type 2 diabetes mellitus with diabetic autonomic (poly)neuropathy; K31.84 Gastroparesis; E86.0 Dehydration; H54.8 Legal blindness, as defined in USA; E11.319 Type 2 diabetes mellitus with unspecified diabetic retinopathy without macular edema; E03.9 Hypothyroidism, unspecified; R13.10 Dysphagia, unspecified; I25.10 Atherosclerotic heart disease of native coronary artery without angina pectoris; D63.1 Anemia in chronic kidney disease; I48.0 Paroxysmal atrial fibrillation; R79.89 Other specified abnormal findings of blood chemistry; E11.22 Type 2 diabetes mellitus with diabetic chronic kidney disease; R57.8 Other shock; F32.A Depression, unspecified; E11.65 Type 2 diabetes mellitus with hyperglycemia; F41.9 Anxiety disorder, unspecified; E87.6 Hypokalemia; L89.220 Pressure ulcer of left hip, unstageable; L89.890 Pressure ulcer of other site, unstageable; L89.610 Pressure ulcer of right heel, unstageable; K74.60 Unspecified cirrhosis of liver; E11.51 Type 2 diabetes mellitus with diabetic peripheral angiopathy without gangrene; Z99.2 Dependence on renal dialysis; Z79.01 Long term (current) use of anticoagulants; Z74.01 Bed confinement status; Z79.4 Long term (current) use of insulin; Z51.5 Encounter for palliative care; Z86.73 Personal history of transient ischemic attack (TIA), and cerebral infarction without residual deficits; Z87.440 Personal history of urinary (tract) infections; Z68.22 Body mass index [BMI] 22.0-22.9, adult
CPT/HCPCS: 71045; 80053; 82140; 82550; 82553; 82728; 82962; 83605; 83735; 83874; 83880; 84100; 84484; 85025; 86140; 87040; 92610; 93005; 94760; 96365; 96367; 96375; 97161; 99285; J2185; J3370; J3475; J3480; J7050; U0002